=== PATIENT | female | born 1990 | race Caucasian/White ===

== ENCOUNTER 2017-05-22 12:13 | Emergency (ER) | payer BC ==
[2017-05-22 12:28] VITALS: BP 115/76
--- NOTE | 2017-05-22 13:12 | EDM.PDOC ---
ED HPI GENERAL MEDICAL PROBLEM - General Chief Complaint: Genitourinary Problem Stated Complaint: LOWER ABDOMINAL PAIN Time Seen by Provider: 05/22/17 13:12 Source of Information: Reports: Patient History Limitations: Reports: No Limitations - History of Present Illness INITIAL COMMENTS - FREE TEXT/NARRATIVE: Patient is a 26-year-old female who presents ED complaining of pain to the suprapubic region worsened with palpation. Describes the discomfort as a stabbing sensation. She's had intermittent tingling/mild pain to the right adnexa area. She is concerned she may have a ovarian cyst. Of note they are trying to get for the past 3 years. Last menstrual cycle was 04/27/17. She does have a history of irregular menses. She did take a home test at home 2 with negative results. She is also having some intermittent vaginal spotting that has been a chronic issue with exercise. She has no history of ovarian cyst. She has no history of STDs. There has been no abnormal vaginal discharge. She denies any pain with intercourse. She denies any fever/chills, nausea/vomiting, diarrhea, hematuria, or any additional complaints. mid-lower pubis area Pain Score (Numeric/FACES): 3 - Related Data Allergies Allergy/AdvReac Type Severity Reaction Status Date / Time No Known Allergies Allergy Verified 05/22/17 12:28 Home Meds: Home Meds Cefdinir 300 mg PO BID 05/22/17 [History] Nitrofurantoin Monohyd/M-Cryst [Macrobid 100 mg Capsule] 100 mg PO BID #10 capsule 05/22/17 [Rx] Past Medical History - Past Health History Medical/Surgical History: Denies Medical/Surgical History Social & Family History - Family History Family Medical History: Noncontributory - Tobacco Use Smoking Status *Q: Never Smoker - Caffeine Use Caffeine Use: Reports: None - Recreational Drug Use Recreational Drug Use: No ED ROS GENERAL - Review of Systems Review Of Systems: See Below Constitutional: Denies: Fever, Chills, Malaise, Weakness, Decreased Appetite HEENT: Reports: No Symptoms Respiratory: Reports: No Symptoms Cardiovascular: Reports: No Symptoms GI/Abdominal: Reports: Abdominal Pain (Suprapubic). Denies: Black Stool, Bloody Stool, Constipation, Diarrhea, Decreased Appetite, Distension, Flatus, Hematemesis, Melena, Nausea, Vomiting : Reports: Frequency, Irregular Menses, Urgency, Other (Intermittent spotting) . Denies: Dysuria, Hematuria, Urinary Retention Musculoskeletal: Reports: No Symptoms ED EXAM, RENAL/ - Physical Exam Exam: See Below Exam Limited By: No Limitations General Appearance: Alert, WD/WN, Anxious Ears: Hearing Grossly Normal Nose: Normal Inspection Throat/Mouth: Normal Voice, No Airway Compromise Neck: Normal Inspection, Supple Respiratory/Chest: No Respiratory Distress, Lungs Clear, Normal Breath Sounds, No Accessory Muscle Use, Chest Non-Tender Cardiovascular: Normal Peripheral Pulses, Regular Rate, Rhythm, No Murmur GI/Abdominal: Normal Bowel Sounds, Soft, No Organomegaly, No Distention, Tender (Moderate pain with palpation to the Suprapubic region. Additional examination of the abdomen revealed minimal discomfort to the right adnexa. No McBurney/ Ryan sign. No pain there or elsewhere. No left sided adnexa to tenderness.) (Female) Exam: Deferred Rectal (Female) Exam: Deferred Extremities: Normal Inspection, Normal Range of Motion, Non-Tender, No Pedal Edema, Normal Capillary Refill Neurological: Alert, Oriented, CN II-XII Intact, Normal Cognition, No Motor/ Sensory Deficits Psychiatric: Normal Affect, Normal Mood Skin Exam: Warm, Dry, Intact, Normal Color, No Rash Course - Vital Signs Last Recorded V/S: Last Vital Signs Temp 97.8 F 05/22/17 12:23 Pulse 84 05/22/17 12:23 Resp 18 05/22/17 12:23 BP 115/76 05/22/17 12:23 Pulse Ox 100 05/22/17 12:23 - Orders/Labs/Meds Labs: Laboratory Tests 05/22/17 05/22/17 Range/Units 12:44 12:44 Urine Color Light yellow (Yellow) Urine Appearance Slt cloudy H (Clear) Urine pH 6.5 (5.0-8.0) Ur Specific [place] 1.015 (1.005-1.030) Urine Protein Negative (Negative) Urine Glucose (UA) Negative (Negative) Urine Ketones Negative (Negative) Urine Occult Blood 2+ H (Negative) Urine Nitrite Negative (Negative) Urine Bilirubin Negative (Negative) Urine Urobilinogen 0.2 (0.2-1.0) Ur Leukocyte Esterase 2+ H (Negative) Urine RBC 5-10 H (0-5) /hpf Urine WBC 5-10 H (0-5) /hpf Ur Epithelial Cells 0-5 (0-5) /hpf Urine Bacteria Few (FEW) /hpf Urine Mucus Not seen (FEW) /hpf Urine HCG, Qual Negative (NEGATIVE) Meds: Medications Discontinued Medications Generic Name Dose Route Start Last Admin Trade Name Loli PRN Reason Stop Dose Admin Nitrofurantoin Macrocrystals 100 mg 05/22/17 14:04 05/22/17 14:28 Macrobid PO 05/22/17 14:05 100 mg ONETIME ONE Administration Phenazopyridine HCl 95 mg 05/22/17 13:31 05/22/17 14:04 Urinary Pain Relief PO 05/22/17 13:32 95 mg ONETIME ONE Administration - Re-Assessments/Exams Free Text/Narrative Re-Assessment/Exam: UA was obtained along with test. UA revealed slightly cloudy, occult blood 2+, leukocyte Estrace 2+, urine rbc's 5-10, urine wbc's 5-10. HCG was negative. Patient has had intermittent spotting. This is a chronic issue. She has no regular menses. Patient has a urinary tract infection. Order Macrobid 100 mg by mouth. We'll discharge patient home with instructions as documented. 05/22/17 13:33 Ordered Pyridium 100 milligrams by mouth. Examination did elicit increasing pain to the suprapubic region with minimal tenderness to right adnexa. Patient is quite anxious and has a history of excessive worrying about symptoms. She states while breast-feeding she developed mastitis and she had breast cancer. With recent symptoms of intermittent spotting and pain described as being mild to the adnexa region she is concerned she has ovarian cancer. She has no family history of this nor she rated told that she is increased risk of having ovarian cancer. She has no B symptoms. Again pain is moderate to severe with palpation in suprapubic region. Patient deferred vaginal exam. UA did reveal findings concerning for urinary tract infection she is on cefdinir which is a third generation cephalosporin she's been on this for 7 days and has only a few days remaining. Urine culture has been obtained. She denies any other abnormalities any concerning for yeast infection or bacterial vaginosis. She has no history of STDs. Will send the patient on Macrodantin 100 mg by mouth. Urine culture be obtained. Outpatient ultrasound pelvic ultrasound will be obtained to evaluate for ovarian cysts.Discussed this with Dr. Evans to which he agrees is a appropriate course. Suspect bacteria within urine is not susceptible to third generation cephalsporin. Discharged home with instructions as documented. Departure - Departure Time of Disposition: 14:06 Disposition: Home, Self-Care 01 Condition: Good Clinical Impression: UTI, Urinary tract infectious disease - Discharge Information Prescriptions: Nitrofurantoin Monohyd/M-Cryst [Macrobid 100 mg Capsule] 100 mg PO BID #10 capsule Instructions: Urinary Tract Infection, Adult, [id number] Referrals: PCP,None [Primary Care Provider] - Forms: ED Department Discharge, ED Return to Work/School Form Additional Instructions: Take the full course of Macrobid as prescribed. Urine culture will be obtained to delineate what bacteria is grown within her urine. This will also allow us to make changes the antibiotics as appropriate. Outpatient transvaginal ultrasound to further delineate for ovarian cysts will be obtained. Please follow up with a provider at [facility] in [place] this coming week for reevaluation. Call and make an appointment this coming Wednesday. Return to ED as needed for any new or worsening symptoms. Continue take Tylenol and ibuprofen in alternating fashion for pain. Push the fluids.
[2017-05-22] MEDS ORDERED: Phenazopyridine 95 MG Tab PO ONE (13:31)
[2017-05-22] MEDS ORDERED: Nitrofurantoin Monohydrate/Macrocrystalline 100 MG Cap PO ONE (14:04)
== END 2017-05-22 14:35 | disposition home or self-care (01) ==
LOC: JD.ED 12:13
DX: N39.0 Urinary tract infection, site not specified (principal)
CPT/HCPCS: 81001; 81025; 99284; A9270; 99283

== ENCOUNTER 2017-10-28 16:43 | Inpatient (IN) | payer BC ==
[2017-10-28] MEDS ORDERED: Lactated Ringers 1,000 ML IV SCH ×2 (17:00→19:30)
[2017-10-28] MEDS ORDERED: HYDROmorphone 0.5 MG/0.5 ML Syringe ONE (17:24)
[2017-10-28] MEDS ORDERED: HYDROmorphone 1 MG/ML Syringe IVPUSH ONE (17:34)
[2017-10-28] MEDS ORDERED: cefOXitin 1 GM in Premix Bag 1 BAG IV ONE (17:38)
[2017-10-28] MEDS ORDERED: Lidocaine 1% 30 ML SDV ONE (17:59)
[2017-10-28] MEDS ORDERED: Propofol 200 MG/20 ML SDV ONE ×2 (18:18→18:55)
[2017-10-28] MEDS ORDERED: Ondansetron 4 MG/2 ML SDV ONE (18:18)
[2017-10-28] MEDS ORDERED: fentaNYL 100 MCG/2 ML SDV ONE ×4 (18:19→19:37)
[2017-10-28] MEDS ORDERED: Lidocaine 1% 4 ML ONE (18:19)
--- NOTE | 2017-10-28 18:21 | US ---
This study was dictated on previous limited obstetrical ultrasound.
--- NOTE | 2017-10-28 18:24 | US ---
Limited obstetrical ultrasound: Multiple real-time images were obtained transabdominally. Comparison: No previous obstetrical ultrasound available for current . Dates: LMP: LMP given as 06/15/17, MARY JANE 03/22/18, gestational age 19 weeks 2 days Current ultrasound: MARY JANE 03/26/18, gestational age 18 weeks 5 days presentation: Mobile Placenta: Right lateral with no findings of placenta previa Amniotic fluid: PREETI 14.05 cm Measurements: BPD: 4.33 cm - 19 weeks 1 day Head circumference: 15.43 cm - 18 weeks 3 days Abdominal circumference: 13.14 cm - 18 weeks 5 days Femur length: 2.78 cm - 18 weeks 4 days Estimated weight: 247 g (0 lbs. 9 oz.), estimated weight at the 38th percentile for age by current ultrasound Heart rate: 143 bpm Cervical length: 4.0 cm Impression: 1. Single intrauterine fetus in mobile presentation. Dates as noted above. 2. No complicating process is identified by ultrasound at this time. Complete anatomic survey not performed. Diagnostic code #1 Limited abdominal ultrasound: Multiple real-time images were obtained. Structure is identified within the anterior abdominal wall at the umbilicus. This presumably represents bowel but a definite track into the abdominal wall cannot be defined on this exam. Impression: 1. Structure felt compatible with bowel within the abdominal wall at the umbilicus. No tract is seen within the abdominal wall to indicate the hernia location. Opening may be too small to visualize by ultrasound indicating possible bowel strangulation/compromise. Surgical exploration could be considered. Diagnostic code #5
[2017-10-28] MEDS ORDERED: Iodine/Sodium Iodide 2% Tincture 30 ML Bottle ONE (18:27)
[2017-10-28] MEDS ORDERED: Ondansetron 4 MG/2 ML SDV IVPUSH PRN (19:19)
[2017-10-28] MEDS ORDERED: fentaNYL 250 MCG/5 ML SDV IVPUSH PRN (19:20)
--- NOTE | 2017-10-28 19:24 | PCM.POSTAN ---
POST ANESTHESIA ASSESSMENT - MENTAL STATUS Mental Status: Alert, Oriented - VITAL SIGNS Pulse Rate: 123 SaO2: 96 Resp Rate: 20 Blood Pressure: 111/70 Temperature: 37.6 C - RESPIRATORY Respiratory Status: Respiratory Rate WNL, Airway Patent, O2 Saturation Stable, Supplemental Oxygen - CARDIOVASCULAR CV Status: Pulse Rate WNL, Blood Pressure Stable - GASTROINTESTINAL GI Status: No Symptoms - PAIN Pain Score: 3 - POST OP HYDRATION Hydration Status: Adequate & Stable - OBSERVATIONS Free Text/Narrative:: no anesthesia complications noted
--- NOTE | 2017-10-28 19:24 | PCM.OPNOTE ---
- General Post-Op/Procedure Note Date of Surgery/Procedure: 10/28/17 Operative Procedure(s): umbilical hernia repair Findings: incarcerated umbilical hernia Pre Op Diagnosis: incarcerated umbilical hernia Post-Op Diagnosis: Same Anesthesia Technique: MAC Primary Surgeon: Issa Harvey Chief Executive: Octaviano Waldron EBL in mLs: 10 Complications: None Condition: Good
--- NOTE | 2017-10-28 19:26 | PCM.PREANE ---
Preanesthetic Assessment - Anesthesia/Transfusion/Family Hx Anesthesia History: Prior Anesthesia Without Reaction Family History of Anesthesia Reaction: No Transfusion History: No Prior Transfusion(s) - Review of Systems General: Fatigue Pulmonary: No Symptoms Cardiovascular: No Symptoms Gastrointestinal: No Symptoms Neurological: No Symptoms Other: Reports: None - Physical Assessment NPO Status Date: 10/28/17 NPO Status Time: 14:00 Pulse: 123 O2 Sat by Pulse Oximetry: 96 Respiratory Rate: 20 Blood Pressure: 111/70 Temperature: 37.6 C Vital Signs: Last Vital Signs Temp 37.6 C 10/28/17 19:24 Pulse 123 H 10/28/17 19:24 Resp 20 10/28/17 19:24 BP 111/70 10/28/17 19:24 Pulse Ox 96 10/28/17 19:24 Height: 1.68 m Weight: 64.138 kg ASA Class: 1E Mental Status: Alert & Oriented x3 Airway Class: Mallampati = 1 Dentition: Reports: Normal Dentition Thyro-Mental Finger Breadths: 3 Mouth Opening Finger Breadths: 3 ROM/Head Extension: Full Lungs: Clear to Auscultation, Normal Respiratory Effort Cardiovascular: Regular Rate, Regular Rhythm - Lab Values: Laboratory Last Values WBC 11.91 K/mm3 (3.98-10.04) H 10/28/17 17:10 RBC 3.73 M/mm3 (3.98-5.22) L 10/28/17 17:10 Hgb 11.7 gm/L (11.2-15.7) 10/28/17 17:10 Hct 34.5 % (34.1-44.9) 10/28/17 17:10 MCV 92.5 fl (79.4-94.8) 10/28/17 17:10 MCH 31.4 pg (25.6-32.2) 10/28/17 17:10 MCHC 33.9 g/dl (32.2-35.5) 10/28/17 17:10 RDW Std Deviation 41.5 fL (36.4-46.3) 10/28/17 17:10 Plt Count 290 K/mm3 (182-369) 10/28/17 17:10 MPV 8.9 fl (9.4-12.3) L 10/28/17 17:10 Neut % (Auto) 78.6 % (34.0-71.1) H 10/28/17 17:10 Lymph % (Auto) 14.1 % (19.3-51.7) L 10/28/17 17:10 [place] % (Auto) 6.2 % (4.7-12.5) 10/28/17 17:10 Eos % (Auto) 0.5 (0.7-5.8) L 10/28/17 17:10 Baso % (Auto) 0.2 % (0.1-1.2) 10/28/17 17:10 Neut # (Auto) 9.36 K/mm3 (1.56-6.13) H 10/28/17 17:10 Lymph # (Auto) 1.68 K/mm3 (1.18-3.74) 10/28/17 17:10 [place] # (Auto) 0.74 K/mm3 (0.24-0.36) H 10/28/17 17:10 Eos # (Auto) 0.06 K/mm3 (0.04-0.36) 10/28/17 17:10 Baso # (Auto) 0.02 K/mm3 (0.01-0.08) 10/28/17 17:10 Sodium 136 mEq/L (136-145) 10/28/17 17:10 Potassium 3.5 mEq/L (3.5-5.1) 10/28/17 17:10 Chloride 101 mEq/L (98-107) 10/28/17 17:10 Carbon Dioxide 23 mEq/L (21-32) 10/28/17 17:10 Anion Gap 15.5 (5-15) H 10/28/17 17:10 BUN 12 mg/dL (7-18) 10/28/17 17:10 Creatinine 0.4 mg/dL (0.55-1.02) L 10/28/17 17:10 Est Cr Clr Drug Dosing 197.77 mL/min 10/28/17 17:10 Estimated GFR (MDRD) > 60 mL/min (>60) 10/28/17 17:10 BUN/Creatinine Ratio 30.0 (14-18) H 10/28/17 17:10 Glucose 76 mg/dL (74-106) 10/28/17 17:10 Calcium 9.3 mg/dL (8.5-10.1) 10/28/17 17:10 Total Bilirubin 0.4 mg/dL (0.2-1.0) 10/28/17 17:10 AST 31 U/L (15-37) 10/28/17 17:10 ALT 43 U/L (14-59) 10/28/17 17:10 Alkaline Phosphatase 56 U/L (46-116) 10/28/17 17:10 Total Protein 7.1 g/dl (6.4-8.2) 10/28/17 17:10 Albumin 3.1 g/dl (3.4-5.0) L 10/28/17 17:10 Globulin 4.0 gm/dL 10/28/17 17:10 Albumin/Globulin Ratio 0.8 (1-2) L 10/28/17 17:10 Urine Color Yellow (Yellow) 10/28/17 18:15 Urine Appearance Clear (Clear) 10/28/17 18:15 Urine pH 6.5 (5.0-8.0) 10/28/17 18:15 Ur Specific [place] 1.020 (1.005-1.030) 10/28/17 18:15 Urine Protein Negative (Negative) 10/28/17 18:15 Urine Glucose (UA) Negative (Negative) 10/28/17 18:15 Urine Ketones 2+ (Negative) H 10/28/17 18:15 Urine Occult Blood Negative (Negative) 10/28/17 18:15 Urine Nitrite Negative (Negative) 10/28/17 18:15 Urine Bilirubin Negative (Negative) 10/28/17 18:15 Urine Urobilinogen 0.2 (0.2-1.0) 10/28/17 18:15 Ur Leukocyte Esterase 1+ (Negative) H 10/28/17 18:15 Urine RBC 0-5 /hpf (0-5) 10/28/17 18:15 Urine WBC 5-10 /hpf (0-5) H 10/28/17 18:15 Ur Epithelial Cells 0-5 /hpf (0-5) 10/28/17 18:15 Urine Bacteria Few /hpf (FEW) 10/28/17 18:15 Urine Mucus Not seen /hpf (FEW) 10/28/17 18:15 - Allergies Allergies/Adverse Reactions: Allergies Allergy/AdvReac Type Severity Reaction Status Date / Time No Known Allergies Allergy Verified 05/22/17 12:28 - Anesthesia Plan Pre-Op Medication Ordered: None - Acknowledgements Anesthesia Type Planned: MAC Pt an Appropriate Candidate for the Planned Anesthesia: Yes Alternatives and Risks of Anesthesia Discussed w Pt/Guardian: Yes Pt/Guardian Understands and Agrees with Anesthesia Plan: Yes PreAnesthesia Questionnaire - Past Health History Medical/Surgical History: Denies Medical/Surgical History [employer] History: Reports: (18 weeks) - SUBSTANCE USE Smoking Status *Q: Never Smoker Tobacco Use Within Last Twelve Months: No Second Hand Smoke Exposure: No Days Per Week of Alcohol Use: 0 Number of Drinks Per Day: 0 Total Drinks Per Week: 0 Recreational Drug Use History: No - HOME MEDS Home Medications: Home Meds Cefdinir 300 mg PO BID 05/22/17 [History] Nitrofurantoin Monohyd/M-Cryst [Macrobid 100 mg Capsule] 100 mg PO BID #10 capsule 05/22/17 [Rx] - CURRENT (IN HOUSE) MEDS Current Meds: Current Medications Fentanyl (Sublimaze) 50 mcg IVPUSH Q5M PRN PRN Reason: PAIN Hydromorphone HCl (Dilaudid) 0.5 mg IVPUSH Q2H PRN PRN Reason: Pain Lactated Ringer's (Ringers, Lactated) 1,000 mls @ 125 mls/hr IV ASDIRECTED [facility] Last Admin: 10/28/17 17:22 Dose: 125 mls/hr Lactated Ringer's (Ringers, Lactated) 1,000 mls @ 75 mls/hr IV ASDIRECTED [facility] Ondansetron HCl (Zofran) 4 mg IVPUSH Q8H PRN PRN Reason: Nausea Discontinued Medications Fentanyl (Sublimaze) Confirm Administered Dose 100 mcg .ROUTE .STK-MED ONE Stop: 10/28/17 18:20 Fentanyl (Sublimaze) Confirm Administered Dose 100 mcg .ROUTE .STK-MED ONE Stop: 10/28/17 19:07 Hydromorphone HCl (Dilaudid) Confirm Administered Dose 0.5 mg .ROUTE .STK-MED ONE Stop: 10/28/17 17:25 Last Admin: 10/28/17 17:44 Dose: 0.5 mg Hydromorphone HCl (Dilaudid) 0.5 mg IVPUSH ONETIME ONE Stop: 10/28/17 17:35 Last Admin: 10/28/17 17:45 Dose: Not Given Cefoxitin Sodium 1 gm/ Premix 50 mls @ 100 mls/hr IV ONETIME ONE Stop: 10/28/17 18:07 Last Admin: 10/28/17 17:45 Dose: 100 mls/hr Lidocaine HCl (Xylocaine-Mpf 1%) Confirm Administered Dose 4 mls @ as directed .ROUTE .STK-MED ONE Stop: 10/28/17 18:20 Iodine (Iodine 2% Mild Tincture) Confirm Administered Dose 30 ml .ROUTE .STK- MED ONE Stop: 10/28/17 18:28 Lidocaine HCl (Xylocaine-Mpf 1%) Confirm Administered Dose 30 ml .ROUTE .STK- MED ONE Stop: 10/28/17 18:00 Ondansetron HCl (Zofran) Confirm Administered Dose 4 mg .ROUTE .STK-MED ONE Stop: 10/28/17 18:19 Propofol (Diprivan 20 Ml) Confirm Administered Dose 200 mg .ROUTE .STK-MED ONE Stop: 10/28/17 18:19 Propofol (Diprivan 20 Ml) Confirm Administered Dose 200 mg .ROUTE .STK-MED ONE Stop: 10/28/17 18:56
[2017-10-28] MEDS: HYDROmorphone 0.5 MG/0.5 ML Syringe IVPUSH PRN (20:38)
[2017-10-28] MEDS ORDERED: LORazepam 0.5 MG Tab PO ONE (21:49)
[2017-10-28] MEDS: Acetaminophen/HYDROcodone 325-5 MG Tab PO PRN (22:03)
[2017-10-29] MEDS: HYDROmorphone 0.5 MG/0.5 ML Syringe IVPUSH PRN ×2 (02:19→05:03)
--- NOTE | 2017-10-29 07:00 | CONS ---
CONSULTING PHYSICIAN: Issa Harvey MD DATE OF CONSULTATION: 10/28/2017 HISTORY OF PRESENT ILLNESS: Brenda Naylor is a 26-year-old who is 18 weeks' , who has come in with incarcerated umbilical hernia. It is quite painful, associated with bloating, nausea, and some vomiting. No chills or fever. She has had this hernia with pain on and off for the last week she states. Her 18-week has been uneventful. PAST MEDICAL HISTORY: Negative. MEDICATIONS: Macrobid capsules. REVIEW OF SYSTEMS: No chest pain, shortness of breath, cough, hoarseness, wheezing, fainting, weakness, numbness, or convulsions. FAMILY HISTORY: Negative. PHYSICAL EXAMINATION: GENERAL: Alert, cooperative female. ABDOMEN: Distended, tender and red around the umbilicus. She is holding the abdomen and is in distress. EYES: Sclerae white. Extraocular muscle motion normal. Oral cavity: Healthy mucous membrane with mouth and tongue. NECK: Supple. No nodes, thyromegaly. LUNGS: Clear. MUSCULOSKELETAL: Lower extremities, unremarkable. NEUROLOGIC: No neurological deficits. PSYCH: Normal. ASSESSMENT: 18 weeks' with incarcerated umbilical hernia. PLAN: Because of the severe symptoms, I have recommended an urgent repair. Possibility of incarceration of the bowel is there. I discussed this with family, risks and complications, they understand and consent. ANTON /[id number]
--- NOTE | 2017-10-29 07:00 | HP ---
DATE OF ADMISSION: 10/28/2017 ADMISSION DIAGNOSES: 18 and 5/7th week intrauterine , incarcerated umbilical hernia. HISTORY OF PRESENT ILLNESS: The patient is a 26-year-old, 5, para 3-1-0-4 white female, who is seen in clinic this afternoon by Dr. Matty Soliman with complaints of periumbilical pain. The patient reported that she has had bruising and pain at the area of her bellybutton with pain starting approximately 2 weeks ago. It worsened yesterday and bruising started to appear. She has had constant nausea and occasional vomiting for the last few days. Also reported some painful bowel movements. Denies any fever or painful urination. No history of hernia. She rates the pain a 7 on a scale of 10. Evaluation per Dr. Harvey, General Surgery, is consistent with findings of incarcerated hernia. The patient is prepared for surgery. The procedure of reduction of umbilical hernia contents and repair of the hernia discussed in detail with the patient by Dr. Harvey. Potential implications as far as is concerned are discussed with her by me. She appears to understand, wishes to proceed, and signed a consent. 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 Her is dated with a certain last menstrual period starting on 06/19/2017, placing her MARY JANE at 03/26/2018. She had a relatively unremarkable thus far. Her first visit was at 13 weeks. She has made good fundal height growth. Laboratory testing in shows her GC and Chlamydia assays were negative. Urinalysis is negative. CBC back in May showed a hemoglobin of 13.3 and 38.8 hematocrit. Platelets were 297. Laboratory testing today shows essentially normal CBC and CMP. PAST MEDICAL HISTORY: The patient has had vaginal delivery x4. All of them full term with the exception of her delivery in 2010, delivered at 34 weeks. This baby, however, was 6 pounds. PAST SURGICAL HISTORY: Unremarkable. FAMILY HISTORY: Daughter has sensory processing disorder on autism scale. One of her 's cousins has Down syndrome. No anesthesia, bleeding, or blood clotting problems noted. SOCIAL HISTORY: The patient is . is Vj Naylor. She lives in [place]. She does not use any significant amounts of alcohol, drugs, or tobacco. REVIEW OF SYSTEMS: GENERAL: The patient's main complaint is periumbilical incision. She is reporting no significant movement at this time, but is probably normal for gestational age. CARDIOVASCULAR: No chest pain or exercise intolerance. RESPIRATORY: No infectious disease symptoms or shortness of breath. GI: Nausea and emesis as described above. Difficult pain with bowel movements. GENITOURINARY SYSTEM: Changes associated with . MUSCULOSKELETAL: Negative. NEUROLOGIC SYSTEM: Negative. PHYSICAL EXAMINATION: VITAL SIGNS: On evaluation clinic, the patient's blood pressure is 102/64, weight was 142, and the patient was having pain in general. HEENT: Neck and back within normal limits. LUNGS: Clear with good breath sounds in all lung burgess. CARDIOVASCULAR: Shows regular rate and rhythm without murmurs. BREAST: Deferred. ABDOMEN: Consistent with . Fundal height consistent with dates. EXTREMITIES: Within normal limits. NEUROLOGIC: Within normal limits. CERVICAL: Not performed. RADIOGRAPHIC STUDIES: Ultrasound shows a hollingsworth viable intrauterine with mobile fetus. Estimated gestational age is 18 weeks' and 5 days. heart rate 143. No complicating processes are known. ASSESSMENT: 1. 18 and 5/7th week intrauterine , incarcerated umbilical hernia. 2. Relatively low risk patient for surgery. PLAN: 1. Dr. Harvey, General Surgery, to evaluate and manage the incarcerated hernia under anesthesia. Procedure, risks, and benefits have been discussed with her by him and consent has been signed. 2. Pain control afterwards [email or web address] MMODAL /[id number]
--- NOTE | 2017-10-29 07:04 | OR ---
DATE OF OPERATION: 10/28/2017 SURGEON: Issa Harvey MD SHOW DESIGN SUPERVISOR: Octaviano Waldron MD PREOPERATIVE DIAGNOSIS: Incarcerated umbilical hernia. POSTOPERATIVE DIAGNOSIS: Incarcerated umbilical hernia. OPERATION PERFORMED: Repair without mesh done under IV sedation local anesthetic. ANESTHESIA: 1% Xylocaine with epinephrine. FINDINGS: A lymph node-like lesion incarcerated in the umbilical hernia. Umbilical hernia was approximately 1 cm crossed. DESCRIPTION OF PROCEDURE: The patient was taken to the operating room, placed in a supine position, connected to monitoring equipment, given IV sedation. Antibiotics were given. The abdomen was then prepped with ChloraPrep, draped off in a sterile fashion. A curvilinear incision was made in the skin just below the umbilicus, carried down to the fascia. The umbilicus was off the umbilical hernia, which proved to be a nodular lesion approximately 2 cm crossed. The hernia sac was dissected out, opened up under this nodular lesion that was contained within it and no loop or omental fat was noted. The hernia sac was then closed after removing the lesion and sending to pathology. The closure was accomplished with a pursestring suture of 3-0 Vicryl suture. The fascia was then closed with interrupted 0 Ethibond suture in a double layer in a horizontal fashion. The umbilicus was then brought down to this repair with 3-0 Vicryl suture and the subcuticular tissue was closed with interrupted 3-0 Vicryl suture and the skin with a running subdermal 4-0 Dexon suture. Steri-Strips and sterile dressing were placed. The anesthetic in addition to MAC analgesia, local anesthetic of 1% Xylocaine without epinephrine was infiltrated around the umbilicus. The patient tolerated the procedure, sent to recovery room in a stable condition. Specimen sent to pathology in a labeled container. Estimated blood loss was 10 mL. ESTIMATED BLOOD LOSS: 10 mL MMODAL /[id number]
[2017-10-29] MEDS: Acetaminophen/HYDROcodone 325-5 MG Tab PO PRN ×4 (08:24→22:46)
[2017-10-29] MEDS ORDERED: Polyethylene Glycol 3350 Powder 17 GM Packet PO PRN (14:21)
--- NOTE | 2017-10-29 14:24 | PCM.SURGPN ---
- General Info Date of Service: 10/29/17 POD#: 1 Functional Status: Reports: Pain Controlled (but only partial she does not want to walk because of pain) - Review of Systems Pulmonary: Reports: No Symptoms Gastrointestinal: Reports: No Symptoms, Other (no bm or flatus ) - Patient Data Vitals - Most Recent: Last Vital Signs Temp 98.2 F 10/29/17 12:18 Pulse 100 10/29/17 12:18 Resp 20 10/29/17 12:18 BP 106/51 L 10/29/17 12:18 Pulse Ox 99 10/29/17 12:18 Weight - Most Recent: 64.592 kg I&O - Last 24 Hours: Intake & Output 10/28/17 10/29/17 10/29/17 23:59 07:59 15:59 Intake Total 800 741 Output Total 800 800 Balance 0 -59 Lab Results Last 24 Hrs: Laboratory Results - last 24 hr 10/28/17 10/28/17 10/28/17 Range/Units 17:10 17:10 18:15 WBC 11.91 H (3.98-10.04) K/mm3 RBC 3.73 L (3.98-5.22) M/mm3 Hgb 11.7 (11.2-15.7) gm/L Hct 34.5 (34.1-44.9) % MCV 92.5 (79.4-94.8) fl MCH 31.4 (25.6-32.2) pg MCHC 33.9 (32.2-35.5) g/dl RDW Std Deviation 41.5 (36.4-46.3) fL Plt Count 290 (182-369) K/mm3 MPV 8.9 L (9.4-12.3) fl Neut % (Auto) 78.6 H (34.0-71.1) % Lymph % (Auto) 14.1 L (19.3-51.7) % [place] % (Auto) 6.2 (4.7-12.5) % Eos % (Auto) 0.5 L (0.7-5.8) Baso % (Auto) 0.2 (0.1-1.2) % Neut # (Auto) 9.36 H (1.56-6.13) K/mm3 Lymph # (Auto) 1.68 (1.18-3.74) K/mm3 [place] # (Auto) 0.74 H (0.24-0.36) K/mm3 Eos # (Auto) 0.06 (0.04-0.36) K/mm3 Baso # (Auto) 0.02 (0.01-0.08) K/mm3 Sodium 136 (136-145) mEq/L Potassium 3.5 (3.5-5.1) mEq/L Chloride 101 (98-107) mEq/L Carbon Dioxide 23 (21-32) mEq/L Anion Gap 15.5 H (5-15) BUN 12 (7-18) mg/dL Creatinine 0.4 L (0.55-1.02) mg/dL Est Cr Clr Drug Dosing 197.77 mL/min Estimated GFR (MDRD) > 60 (>60) mL/min BUN/Creatinine Ratio 30.0 H (14-18) Glucose 76 (74-106) mg/dL Calcium 9.3 (8.5-10.1) mg/dL Total Bilirubin 0.4 (0.2-1.0) mg/dL AST 31 (15-37) U/L ALT 43 (14-59) U/L Alkaline Phosphatase 56 (46-116) U/L Total Protein 7.1 (6.4-8.2) g/dl Albumin 3.1 L (3.4-5.0) g/dl Globulin 4.0 gm/dL Albumin/Globulin Ratio 0.8 L (1-2) Urine Color Yellow (Yellow) Urine Appearance Clear (Clear) Urine pH 6.5 (5.0-8.0) Ur Specific [place] 1.020 (1.005-1.030) Urine Protein Negative (Negative) Urine Glucose (UA) Negative (Negative) Urine Ketones 2+ H (Negative) Urine Occult Blood Negative (Negative) Urine Nitrite Negative (Negative) Urine Bilirubin Negative (Negative) Urine Urobilinogen 0.2 (0.2-1.0) Ur Leukocyte Esterase 1+ H (Negative) Urine RBC 0-5 (0-5) /hpf Urine WBC 5-10 H (0-5) /hpf Ur Epithelial Cells 0-5 (0-5) /hpf Urine Bacteria Few (FEW) /hpf Urine Mucus Not seen (FEW) /hpf Med Orders - Current: Current Medications Hydrocodone Bitart/Acetaminophen ([place] 325-5 Mg) 1 tab PO Q6H PRN PRN Reason: Pain Last Admin: 10/29/17 14:03 Dose: 1 tab Docusate Sodium (Colace) 100 mg PO BID [facility] Hydromorphone HCl (Dilaudid) 0.5 mg IVPUSH Q2H PRN PRN Reason: Pain Last Admin: 10/29/17 05:03 Dose: 0.5 mg Lactated Ringer's (Ringers, Lactated) 1,000 mls @ 75 mls/hr IV ASDIRECTED ANNA Last Admin: 10/28/17 22:08 Dose: 75 mls/hr Ondansetron HCl (Zofran) 4 mg IVPUSH Q8H PRN PRN Reason: Nausea Last Admin: 10/29/17 05:03 Dose: 4 mg Polyethylene Glycol (Miralax) 17 gm PO BEDTIME PRN PRN Reason: Constipation Discontinued Medications Fentanyl (Sublimaze) Confirm Administered Dose 100 mcg .ROUTE .STK-MED ONE Stop: 10/28/17 18:20 Fentanyl (Sublimaze) Confirm Administered Dose 100 mcg .ROUTE .STK-MED ONE Stop: 10/28/17 19:07 Fentanyl (Sublimaze) 50 mcg IVPUSH Q5M PRN PRN Reason: PAIN Last Admin: 10/28/17 19:30 Dose: 50 mcg Fentanyl (Sublimaze) Confirm Administered Dose 100 mcg .ROUTE .STK-MED ONE Stop: 10/28/17 19:21 Last Admin: 10/28/17 19:44 Dose: 50 mcg Fentanyl (Sublimaze) Confirm Administered Dose 100 mcg .ROUTE .STK-MED ONE Stop: 10/28/17 19:38 Last Admin: 10/29/17 03:40 Dose: Not Given Hydromorphone HCl (Dilaudid) Confirm Administered Dose 0.5 mg .ROUTE .STK-MED ONE Stop: 10/28/17 17:25 Last Admin: 10/28/17 17:44 Dose: 0.5 mg Hydromorphone HCl (Dilaudid) 0.5 mg IVPUSH ONETIME ONE Stop: 10/28/17 17:35 Last Admin: 10/28/17 17:45 Dose: Not Given Lactated Ringer's (Ringers, Lactated) 1,000 mls @ 125 mls/hr IV ASDIRECTED ANNA Last Admin: 10/28/17 17:22 Dose: 125 mls/hr Cefoxitin Sodium 1 gm/ Premix 50 mls @ 100 mls/hr IV ONETIME ONE Stop: 10/28/17 18:07 Last Admin: 10/28/17 17:45 Dose: 100 mls/hr Lidocaine HCl (Xylocaine-Mpf 1%) Confirm Administered Dose 4 mls @ as directed .ROUTE .STK-MED ONE Stop: 10/28/17 18:20 Iodine (Iodine 2% Mild Tincture) Confirm Administered Dose 30 ml .ROUTE .STK- MED ONE Stop: 10/28/17 18:28 Lidocaine HCl (Xylocaine-Mpf 1%) Confirm Administered Dose 30 ml .ROUTE .STK- MED ONE Stop: 10/28/17 18:00 Last Admin: 10/28/17 18:42 Dose: 20 ml Lorazepam (Ativan) 0.5 mg PO ONETIME ONE Stop: 10/28/17 21:50 Last Admin: 10/28/17 22:05 Dose: 0.5 mg Ondansetron HCl (Zofran) Confirm Administered Dose 4 mg .ROUTE .STK-MED ONE Stop: 10/28/17 18:19 Propofol (Diprivan 20 Ml) Confirm Administered Dose 200 mg .ROUTE .STK-MED ONE Stop: 10/28/17 18:19 Propofol (Diprivan 20 Ml) Confirm Administered Dose 200 mg .ROUTE .STK-MED ONE Stop: 10/28/17 18:56 - Exam Wound/Incisions: Healing Well General: Alert, Oriented GI/Abdominal Exam: Soft, No Distention, Other (no bowel sounds) - Problem List Review Problem List Initiated/Reviewed/Updated: Yes - My Orders Last 24 Hours: Active Orders 24 hr Category Date Time Status Patient Status [ADT] Routine ADT 10/28/17 20:49 Active Activity as Tolerated [RC] BID Care 10/28/17 16:56 Active Ambulate [RC] 09,15,20 Care 10/28/17 19:17 Active Antiembolic Devices [RC] QSHIFT Care 10/28/17 19:18 Active Communication Order [RC] ROUTINE Care 10/28/17 19:20 Inactive External Monitoring [ Heart Rate] [RC] Click Care 10/28/17 19:20 Active to Edit RT Incentive Spirometry [RC] ASDIRECTED Care 10/28/17 19:18 Active Turn, Cough, Deep Breathe [RC] .PRN Care 10/28/17 19:17 Active Vital Signs [RC] Q15M Care 10/28/17 19:20 Inactive Vital Signs [RC] Q4HR Care 10/28/17 17:01 Active Consult to Physician [CONS] Stat Cons 10/28/17 16:50 Active Regular Diet [DIET] Diet 10/29/17 Lunch Active Acetaminophen/HYDROcodone [[place] 325-5 MG] Med 10/28/17 21:49 Active 1 tab PO Q6H PRN Docusate Sodium [Colace] Med 10/29/17 21:00 Ordered 100 mg PO BID HYDROmorphone [Dilaudid] Med 10/28/17 19:19 Active 0.5 mg IVPUSH Q2H PRN Lactated Ringers [Ringers, Lactated] 1,000 ml Med 10/28/17 19:30 Active IV ASDIRECTED Ondansetron [Zofran] Med 10/28/17 19:19 Active 4 mg IVPUSH Q8H PRN Polyethylene Glycol 3350 [MiraLAX] Med 10/29/17 14:21 Ordered 17 gm PO BEDTIME PRN SCD [Sequential Compression Device] [OM.PC] Routine Oth 10/28/17 19:18 Ordered Schedule Procedure [COMM] Urgent Oth 10/28/17 17:37 Ordered Resuscitation Status Routine Resus Stat 10/28/17 16:47 Ordered Medication Orders Hydrocodone Bitart/Acetaminophen ([place] 325-5 Mg) 1 tab PO Q6H PRN PRN Reason: Pain Last Admin: 10/29/17 14:03 Dose: 1 tab Admin: 10/29/17 08:24 Dose: 1 tab Admin: 10/28/17 22:03 Dose: 1 tab Docusate Sodium (Colace) 100 mg PO BID ANNA Hydromorphone HCl (Dilaudid) 0.5 mg IVPUSH Q2H PRN PRN Reason: Pain Last Admin: 10/29/17 05:03 Dose: 0.5 mg Admin: 10/29/17 02:19 Dose: 0.5 mg Admin: 10/28/17 20:38 Dose: 0.5 mg Lactated Ringer's (Ringers, Lactated) 1,000 mls @ 75 mls/hr IV ASDIRECTED ANNA Last Admin: 10/28/17 22:08 Dose: 75 mls/hr Ondansetron HCl (Zofran) 4 mg IVPUSH Q8H PRN PRN Reason: Nausea Last Admin: 10/29/17 05:03 Dose: 4 mg Polyethylene Glycol (Miralax) 17 gm PO BEDTIME PRN PRN Reason: Constipation - Plan Plan (Free Text/Narrative):: keep pt in for another 24 hours to manage her painand increase her activity level will give laxitives ANDRES
--- NOTE | 2017-10-29 14:25 | PCM.DCSUM1 ---
Discharge Summary - Hospital Course Free Text/Narrative:: Brenda is a 26-year-old 5 para [birth year] white female who was admitted yesterday afternoon with complaints of periumbilical pain. She is found to have an incarcerated umbilical hernia. Consultation is made with Dr. Viet Harvey who took the patient to surgery for reduction in the hernia and for repair of her umbilical hernia site. Please see his operative report for details. Ultrasound was done prior to the surgery and she is found to be intact and with normal growth interval, PREETI and placenta location. No evidence of problems noted. Patient was kept overnight and this morning she has had a regular diet and is ambulating and voiding without problems. She is discharged home. - Discharge Data Discharge Date: 10/29/17 Discharge Disposition: Home, Self-Care 01 Condition: Good - Patient Summary/Data Operative Procedure(s) Performed: umbilical hernia repair Consults: Consultations 10/28/17 16:50 Consult to Physician [CONS] Stat - Patient Instructions Diet: Regular Diet as Tolerated Activity: As Tolerated (No intercourse or tampons until seen back, no lifting greater than 15 pounds or driving a car 1 week. No tub baths.) Driving: Do Not Drive Showering/Bathing: May Shower Wound/Incision Care: Keep Operative Site/Wound Site Clean and Dry Notify Provider of: Fever, Increased Pain, Swelling and Redness, Drainage, Nausea and/or Vomiting - Discharge Plan Prescriptions/Med Rec: Acetaminophen/oxyCODONE [Percocet 325-5 MG] 2 tab PO Q2H PRN #30 tablet PRN Reason: Pain Home Medications: Home Meds Sertraline HCl 50 mg PO DAILY 10/28/17 [History] Acetaminophen/oxyCODONE [Percocet 325-5 MG] 2 tab PO Q2H PRN #30 tablet [Rx] Referrals: Octaviano Waldron MD [Physician] - (Return to clinicDr. Waldron1 week) - Discharge Summary/Plan Comment DC Time >30 min.: No Discharge Summary/Plan Comment: Discharge plans: Discharge instructions: 1. Discharge home 2. Diet, activity and follow-up discussed with patient. Recommend nursing diet with increased calories and calcium. 3. Precautions given concern increased pain, bleeding, temperature, signs/ symptoms of DVT/PE. 4. Medications per home medication was printed, discussed with and given to the patient. 5. Return to clinic-Dr. Waldron[facility] in 1 week. Diagnosis: 18-5/7 week intrauterine , incarcerated umbilical herniastatus post repair Condition: Good - Patient Data Vitals - Most Recent: Last Vital Signs Temp 36.8 C 10/29/17 12:18 Pulse 100 10/29/17 12:18 Resp 20 10/29/17 12:18 BP 106/51 L 10/29/17 12:18 Pulse Ox 99 10/29/17 12:18 Weight - Most Recent: 64.592 kg I&O - Last 24 hours: Intake & Output 10/28/17 10/29/17 10/29/17 22:59 06:59 14:59 Intake Total 800 741 Output Total 800 800 Balance 0 -59 Lab Results - Last 24 hrs: Laboratory Results - last 24 hr 10/28/17 10/28/17 10/28/17 Range/Units 17:10 17:10 18:15 WBC 11.91 H (3.98-10.04) K/mm3 RBC 3.73 L (3.98-5.22) M/mm3 Hgb 11.7 (11.2-15.7) gm/L Hct 34.5 (34.1-44.9) % MCV 92.5 (79.4-94.8) fl MCH 31.4 (25.6-32.2) pg MCHC 33.9 (32.2-35.5) g/dl RDW Std Deviation 41.5 (36.4-46.3) fL Plt Count 290 (182-369) K/mm3 MPV 8.9 L (9.4-12.3) fl Neut % (Auto) 78.6 H (34.0-71.1) % Lymph % (Auto) 14.1 L (19.3-51.7) % [place] % (Auto) 6.2 (4.7-12.5) % Eos % (Auto) 0.5 L (0.7-5.8) Baso % (Auto) 0.2 (0.1-1.2) % Neut # (Auto) 9.36 H (1.56-6.13) K/mm3 Lymph # (Auto) 1.68 (1.18-3.74) K/mm3 [place] # (Auto) 0.74 H (0.24-0.36) K/mm3 Eos # (Auto) 0.06 (0.04-0.36) K/mm3 Baso # (Auto) 0.02 (0.01-0.08) K/mm3 Sodium 136 (136-145) mEq/L Potassium 3.5 (3.5-5.1) mEq/L Chloride 101 (98-107) mEq/L Carbon Dioxide 23 (21-32) mEq/L Anion Gap 15.5 H (5-15) BUN 12 (7-18) mg/dL Creatinine 0.4 L (0.55-1.02) mg/dL Est Cr Clr Drug Dosing 197.77 mL/min Estimated GFR (MDRD) > 60 (>60) mL/min BUN/Creatinine Ratio 30.0 H (14-18) Glucose 76 (74-106) mg/dL Calcium 9.3 (8.5-10.1) mg/dL Total Bilirubin 0.4 (0.2-1.0) mg/dL AST 31 (15-37) U/L ALT 43 (14-59) U/L Alkaline Phosphatase 56 (46-116) U/L Total Protein 7.1 (6.4-8.2) g/dl Albumin 3.1 L (3.4-5.0) g/dl Globulin 4.0 gm/dL Albumin/Globulin Ratio 0.8 L (1-2) Urine Color Yellow (Yellow) Urine Appearance Clear (Clear) Urine pH 6.5 (5.0-8.0) Ur Specific [place] 1.020 (1.005-1.030) Urine Protein Negative (Negative) Urine Glucose (UA) Negative (Negative) Urine Ketones 2+ H (Negative) Urine Occult Blood Negative (Negative) Urine Nitrite Negative (Negative) Urine Bilirubin Negative (Negative) Urine Urobilinogen 0.2 (0.2-1.0) Ur Leukocyte Esterase 1+ H (Negative) Urine RBC 0-5 (0-5) /hpf Urine WBC 5-10 H (0-5) /hpf Ur Epithelial Cells 0-5 (0-5) /hpf Urine Bacteria Few (FEW) /hpf Urine Mucus Not seen (FEW) /hpf Med Orders - Current: Current Medications Hydrocodone Bitart/Acetaminophen ([place] 325-5 Mg) 1 tab PO Q6H PRN PRN Reason: Pain Last Admin: 10/29/17 14:03 Dose: 1 tab Hydromorphone HCl (Dilaudid) 0.5 mg IVPUSH Q2H PRN PRN Reason: Pain Last Admin: 10/29/17 05:03 Dose: 0.5 mg Lactated Ringer's (Ringers, Lactated) 1,000 mls @ 75 mls/hr IV ASDIRECTED [facility] Last Admin: 10/28/17 22:08 Dose: 75 mls/hr Ondansetron HCl (Zofran) 4 mg IVPUSH Q8H PRN PRN Reason: Nausea Last Admin: 10/29/17 05:03 Dose: 4 mg Discontinued Medications Fentanyl (Sublimaze) Confirm Administered Dose 100 mcg .ROUTE .STK-MED ONE Stop: 10/28/17 18:20 Fentanyl (Sublimaze) Confirm Administered Dose 100 mcg .ROUTE .STK-MED ONE Stop: 10/28/17 19:07 Fentanyl (Sublimaze) 50 mcg IVPUSH Q5M PRN PRN Reason: PAIN Last Admin: 10/28/17 19:30 Dose: 50 mcg Fentanyl (Sublimaze) Confirm Administered Dose 100 mcg .ROUTE .STK-MED ONE Stop: 10/28/17 19:21 Last Admin: 10/28/17 19:44 Dose: 50 mcg Fentanyl (Sublimaze) Confirm Administered Dose 100 mcg .ROUTE .STK-MED ONE Stop: 10/28/17 19:38 Last Admin: 10/29/17 03:40 Dose: Not Given Hydromorphone HCl (Dilaudid) Confirm Administered Dose 0.5 mg .ROUTE .STK-MED ONE Stop: 10/28/17 17:25 Last Admin: 10/28/17 17:44 Dose: 0.5 mg Hydromorphone HCl (Dilaudid) 0.5 mg IVPUSH ONETIME ONE Stop: 10/28/17 17:35 Last Admin: 10/28/17 17:45 Dose: Not Given Lactated Ringer's (Ringers, Lactated) 1,000 mls @ 125 mls/hr IV ASDIRECTED [facility] Last Admin: 10/28/17 17:22 Dose: 125 mls/hr Cefoxitin Sodium 1 gm/ Premix 50 mls @ 100 mls/hr IV ONETIME ONE Stop: 10/28/17 18:07 Last Admin: 10/28/17 17:45 Dose: 100 mls/hr Lidocaine HCl (Xylocaine-Mpf 1%) Confirm Administered Dose 4 mls @ as directed .ROUTE .STK-MED ONE Stop: 10/28/17 18:20 Iodine (Iodine 2% Mild Tincture) Confirm Administered Dose 30 ml .ROUTE .STK- MED ONE Stop: 10/28/17 18:28 Lidocaine HCl (Xylocaine-Mpf 1%) Confirm Administered Dose 30 ml .ROUTE .STK- MED ONE Stop: 10/28/17 18:00 Last Admin: 10/28/17 18:42 Dose: 20 ml Lorazepam (Ativan) 0.5 mg PO ONETIME ONE Stop: 10/28/17 21:50 Last Admin: 10/28/17 22:05 Dose: 0.5 mg Ondansetron HCl (Zofran) Confirm Administered Dose 4 mg .ROUTE .STK-MED ONE Stop: 10/28/17 18:19 Propofol (Diprivan 20 Ml) Confirm Administered Dose 200 mg .ROUTE .STK-MED ONE Stop: 10/28/17 18:19 Propofol (Diprivan 20 Ml) Confirm Administered Dose 200 mg .ROUTE .STK-MED ONE Stop: 10/28/17 18:56 *Q Meaningful Use (DIS) - VTE *Q VTE Criteria *Q: - Stroke *Q Stroke Criteria *Q: - AMI *Q AMI Criteria *Q:
[2017-10-29] MEDS: Docusate Sodium 100 MG Cap PO SCH (20:49)
[2017-10-30] MEDS: Acetaminophen/HYDROcodone 325-5 MG Tab PO PRN ×2 (03:16→09:01)
[2017-10-30] MEDS: Docusate Sodium 100 MG Cap PO SCH (09:01)
[2017-10-30 09:11] VITALS: BP 103/60
--- NOTE | 2017-10-30 11:43 | PCM.SURGPN ---
- General Info Date of Service: 10/30/17 - Patient Data Vitals - Most Recent: Last Vital Signs Temp 98.8 F 10/30/17 08:53 Pulse 91 10/30/17 08:53 Resp 15 10/30/17 08:53 BP 103/60 10/30/17 08:53 Pulse Ox 100 10/30/17 08:53 Weight - Most Recent: 65.091 kg I&O - Last 24 Hours: Intake & Output 10/29/17 10/30/17 10/30/17 23:59 07:59 15:59 Intake Total 1690 400 180 Output Total 800 Balance 890 400 180 Med Orders - Current: Current Medications Hydrocodone Bitart/Acetaminophen ([place] 325-5 Mg) 1 tab PO Q4H PRN PRN Reason: Pain Last Admin: 10/30/17 09:01 Dose: 1 tab Docusate Sodium (Colace) 100 mg PO BID ANNA Last Admin: 10/30/17 09:01 Dose: 100 mg Hydromorphone HCl (Dilaudid) 0.5 mg IVPUSH Q2H PRN PRN Reason: Pain Last Admin: 10/29/17 05:03 Dose: 0.5 mg Ondansetron HCl (Zofran) 4 mg IVPUSH Q8H PRN PRN Reason: Nausea Last Admin: 10/29/17 05:03 Dose: 4 mg Polyethylene Glycol (Miralax) 17 gm PO BEDTIME PRN PRN Reason: Constipation Last Admin: 10/29/17 15:15 Dose: 17 gm Discontinued Medications Hydrocodone Bitart/Acetaminophen ([place] 325-5 Mg) 1 tab PO Q6H PRN PRN Reason: Pain Last Admin: 10/29/17 14:03 Dose: 1 tab Fentanyl (Sublimaze) Confirm Administered Dose 100 mcg .ROUTE .STK-MED ONE Stop: 10/28/17 18:20 Fentanyl (Sublimaze) Confirm Administered Dose 100 mcg .ROUTE .STK-MED ONE Stop: 10/28/17 19:07 Fentanyl (Sublimaze) 50 mcg IVPUSH Q5M PRN PRN Reason: PAIN Last Admin: 10/28/17 19:30 Dose: 50 mcg Fentanyl (Sublimaze) Confirm Administered Dose 100 mcg .ROUTE .STK-MED ONE Stop: 10/28/17 19:21 Last Admin: 10/28/17 19:44 Dose: 50 mcg Fentanyl (Sublimaze) Confirm Administered Dose 100 mcg .ROUTE .STK-MED ONE Stop: 10/28/17 19:38 Last Admin: 10/29/17 03:40 Dose: Not Given Hydromorphone HCl (Dilaudid) Confirm Administered Dose 0.5 mg .ROUTE .STK-MED ONE Stop: 10/28/17 17:25 Last Admin: 10/28/17 17:44 Dose: 0.5 mg Hydromorphone HCl (Dilaudid) 0.5 mg IVPUSH ONETIME ONE Stop: 10/28/17 17:35 Last Admin: 10/28/17 17:45 Dose: Not Given Lactated Ringer's (Ringers, Lactated) 1,000 mls @ 125 mls/hr IV ASDIRECTED [facility] Last Admin: 10/28/17 17:22 Dose: 125 mls/hr Cefoxitin Sodium 1 gm/ Premix 50 mls @ 100 mls/hr IV ONETIME ONE Stop: 10/28/17 18:07 Last Admin: 10/28/17 17:45 Dose: 100 mls/hr Lidocaine HCl (Xylocaine-Mpf 1%) Confirm Administered Dose 4 mls @ as directed .ROUTE .STK-MED ONE Stop: 10/28/17 18:20 Lactated Ringer's (Ringers, Lactated) 1,000 mls @ 75 mls/hr IV ASDIRECTED [facility] Last Admin: 10/28/17 22:08 Dose: 75 mls/hr Iodine (Iodine 2% Mild Tincture) Confirm Administered Dose 30 ml .ROUTE .STK- MED ONE Stop: 10/28/17 18:28 Lidocaine HCl (Xylocaine-Mpf 1%) Confirm Administered Dose 30 ml .ROUTE .STK- MED ONE Stop: 10/28/17 18:00 Last Admin: 10/28/17 18:42 Dose: 20 ml Lorazepam (Ativan) 0.5 mg PO ONETIME ONE Stop: 10/28/17 21:50 Last Admin: 10/28/17 22:05 Dose: 0.5 mg Ondansetron HCl (Zofran) Confirm Administered Dose 4 mg .ROUTE .STK-MED ONE Stop: 10/28/17 18:19 Propofol (Diprivan 20 Ml) Confirm Administered Dose 200 mg .ROUTE .STK-MED ONE Stop: 10/28/17 18:19 Propofol (Diprivan 20 Ml) Confirm Administered Dose 200 mg .ROUTE .STK-MED ONE Stop: 10/28/17 18:56 - Problem List Review Problem List Initiated/Reviewed/Updated: Yes - My Orders Last 24 Hours: Active Orders 24 hr Category Date Time Status Ready for Discharge [RC] PER UNIT ROUTINE Care 10/29/17 14:29 Inactive Regular Diet [DIET] Diet 10/29/17 Lunch Active Acetaminophen/HYDROcodone [[place] 325-5 MG] Med 10/29/17 15:50 Active 1 tab PO Q4H PRN Docusate Sodium [Colace] Med 10/29/17 21:00 Active 100 mg PO BID Polyethylene Glycol 3350 [MiraLAX] Med 10/29/17 14:21 Active 17 gm PO BEDTIME PRN Medication Orders Hydrocodone Bitart/Acetaminophen ([place] 325-5 Mg) 1 tab PO Q4H PRN PRN Reason: Pain Last Admin: 10/30/17 09:01 Dose: 1 tab Admin: 10/30/17 03:16 Dose: 1 tab Admin: 10/29/17 22:46 Dose: 1 tab Admin: 10/29/17 18:09 Dose: 1 tab Docusate Sodium (Colace) 100 mg PO BID ANNA Last Admin: 10/30/17 09:01 Dose: 100 mg Admin: 10/29/17 20:49 Dose: 100 mg Hydromorphone HCl (Dilaudid) 0.5 mg IVPUSH Q2H PRN PRN Reason: Pain Last Admin: 10/29/17 05:03 Dose: 0.5 mg Admin: 10/29/17 02:19 Dose: 0.5 mg Admin: 10/28/17 20:38 Dose: 0.5 mg Ondansetron HCl (Zofran) 4 mg IVPUSH Q8H PRN PRN Reason: Nausea Last Admin: 10/29/17 05:03 Dose: 4 mg Polyethylene Glycol (Miralax) 17 gm PO BEDTIME PRN PRN Reason: Constipation Last Admin: 10/29/17 15:15 Dose: 17 gm - Plan Plan (Free Text/Narrative):: discharge dictated ANDRES
--- NOTE | 2017-11-01 08:00 | DISCH ---
ADMISSION DATE: 10/28/2017 DISCHARGE DATE: 10/30/2017 HISTORY: This is a 26-year-old who is 18 weeks' came in with incarcerated umbilical hernia, which is quite painful, associated with bloating, nausea and vomiting. No chills or fever. She had this hernia pain on and off over the last week and became quite severe yesterday and came in. She was seen by Gynecology and they asked me to evaluate her. PAST MEDICAL HISTORY: Other than anxiety is good. She is on Macrobid capsules. The baby is normal . PHYSICAL EXAMINATION: GENERAL: Reveals a cooperative female, distended, tender around the umbilicus with erythema and a nodule present. HEENT: Eyes unremarkable. NECK: Supple. LUNGS: Clear. CARDIAC: Heart tones regular rate. HOSPITAL COURSE: The patient was evaluated and brought to the operating room emergency procedure where the incarcerated umbilical hernia was repaired. Mesh was not used. Ethibond sutures were used to repair. Nodule was noted and this was removed and sent to Pathology. The patient's postoperative course was that of expected pain in the incision site requiring IV pain medication for least 48 hours, some loss of appetite and inability to eat. This gradually resolved and on the day of discharge she is eating, ambulating. Pain had decreased to the point where she no longer needed the IV Dilaudid and can use [place]. During her postop course, her baby was followed and monitored and there was no problem. FINAL DIAGNOSES: 1. Incarcerated umbilical hernia status post repair. 2. Postop nausea and pain resolved. 3. Loss of appetite for least 48 hours which has returned with normal bowel function. 4. 18-week which on monitoring is progressing normally. CONDITION ON DISCHARGE: Improved. DIET: Regular. DISCHARGE MEDICATIONS: Per medication reconciliation form including [place] for her pain and Colace for her bowels and MiraLAX as needed for constipation. ACTIVITY: No work, no pushing, shoving or pulling or lifting. FOLLOW-UP: Followup visit with Dr. Waldron and at the time of her discharge her wound was healing without problem. ANTON /[id number]
== END 2017-10-30 13:21 | disposition home or self-care (01) | DRG 952 ==
LOC: JD.MS 16:43 → OBSVTOIN 20:49 → JD.MS 20:49
PROVIDERS: ADMIT Obstetrics & Gynecology; ATTEND Obstetrics & Gynecology
PROC: 0WQF0ZZ Repair Abdominal Wall, Open Approach (ICD-10-PCS; principal; 2017-10-28)
DX: O75.89 Other specified complications of labor and delivery (principal); Z3A.19 19 weeks gestation of pregnancy; K42.0 Umbilical hernia with obstruction, without gangrene; R11.0 Nausea
CPT/HCPCS: 00830; 36415; 76705; 76705-26; 76815; 76815-26; 80053; 81001; 85025; A9270-GY; J0694; J1170; J2001; J2405; J2704; J3010; J7120